=== PATIENT | female | born 1980 | race American Indian/Alaskan Native ===

== ENCOUNTER 2021-04-10 19:46 | Emergency (ER) | payer MEDICAID, OTHER ==
[2021-04-10] MEDS ORDERED: ACETAMINOPHEN 325 MG TAB PO ONE (20:34)
[2021-04-10] MEDS ORDERED: HYDROcodone/ACETAMINOPHEN 5-325 MG TAB PO ONE (21:03)
[2021-04-10] MEDS ORDERED: LIDOCAINE (1%) 10 MG/1 ML VIAL 20 ML MDV INFILTRATI ONE (21:04)
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
[2021-04-10 22:45] VITALS: BP 144/101
== END 2021-04-10 23:05 | disposition home or self-care (01) ==
LOC: ED 19:46
DX: S81.011A Laceration without foreign body, right knee, initial encounter (principal); I10 Essential (primary) hypertension; Z98.890 Other specified postprocedural states; Z79.899 Other long term (current) drug therapy; V49.49XA Driver injured in collision with other motor vehicles in traffic accident, initial encounter; Y93.89 Activity, other specified; Y92.89 Other specified places as the place of occurrence of the external cause; Y99.8 Other external cause status